=== PATIENT | female | born 1940 | race Native Hawaiian/Other Pacific Islander ===

== ENCOUNTER 2016-04-01 08:47 | Outpatient (CLI) | payer OTHER, BC ==
[~2016-04-01 08:47] MED LIST: ALLO300T23 PO; ALPR0.2566 PO; AMOX500C85 PO; ASA LOW STR81 MG PO; BRILINTA90 MG PO; CARV25TA PO; CRESTOR5 MG PO; CYAN10009 IM; GABA300C2 PO; GLIP10TA55 PO; GRALISE600 MG OR; LISI5TAB10 PO; LOSA50TA PO; METFORMIN ER1000 MG PO; NIASPAN1000 ER PO; RAMI10CA PO; SPIRONOLACT25 MG PO; TESSALON200 MG OR; TIROSINT50 MCG OR
[2016-04-01 09:05] LABS: PLATELET COUNT 193 K/uL (152-353)
[2016-04-01 10:27] LABS: POTASSIUM 4.5 mmol/L (3.6-5.2); SODIUM 136 mmol/L (136-145)
== END 2016-04-01 21:42 | disposition home or self-care (01) ==
LOC: LABW 08:47
PROVIDERS: Internal Medicine Cardiovascular Disease
DX: Z79.899 Other long term (current) drug therapy (principal); Z51.81 Encounter for therapeutic drug level monitoring
CPT/HCPCS: 36415; 80053; 80061; 82248; 85027

== ENCOUNTER 2016-09-29 07:09 | Outpatient (CLI) | payer OTHER, BC ==
[2016-09-29 07:34] LABS: PLATELET COUNT 190 K/uL (152-353)
[2016-09-29 08:18] LABS: POTASSIUM 4.6 mmol/L (3.6-5.2); SODIUM 139 mmol/L (136-145)
== END 2016-09-29 08:10 | disposition home or self-care (01) ==
LOC: LABW 07:09
PROVIDERS: Internal Medicine
DX: I10 Essential (primary) hypertension (principal); E03.8 Other specified hypothyroidism; E11.9 Type 2 diabetes mellitus without complications; E79.0 Hyperuricemia without signs of inflammatory arthritis and tophaceous disease
CPT/HCPCS: 36415; 80053; 80061; 81000; 82043; 82570; 83036; 84439; 84443; 84550; 85027

== ENCOUNTER 2017-03-20 22:18 | Emergency (ER) | payer OTHER, BC ==
[~2017-03-20] VITALS: Ht 160 cm; Wt 75.8 kg
[2017-03-20 22:48] LABS: PLATELET COUNT 180 K/uL (152-353)
[2017-03-20 23:00] LABS: POTASSIUM 4.5 mmol/L (3.6-5.2)
[2017-03-20 23:08] LABS: PARTIAL THROMBOPLASTIN TIME 22.4 SECONDS (24.5-33.6)
[2017-03-20 23:59] VITALS: BP 143/75; TEMP 98.3
== END 2017-03-21 | disposition home or self-care (01) ==
LOC: ED 22:18
DX: M94.0 Chondrocostal junction syndrome [Tietze] (principal); I45.19 Other right bundle-branch block
CPT/HCPCS: 36415; 80053; 82550; 84484; 85027; 85610; 85730; 93005; 99283

== ENCOUNTER 2017-08-02 08:26 | Outpatient (CLI) | payer OTHER, BC ==
[2017-08-02 09:04] LABS: PLATELET COUNT 176 K/uL (152-353)
[2017-08-02 09:24] LABS: POTASSIUM 4.1 mmol/L (3.6-5.2)
== END 2017-08-02 21:50 | disposition home or self-care (01) ==
LOC: LABW 08:26
PROVIDERS: Internal Medicine
DX: E79.0 Hyperuricemia without signs of inflammatory arthritis and tophaceous disease (principal); E11.9 Type 2 diabetes mellitus without complications; D51.0 Vitamin B12 deficiency anemia due to intrinsic factor deficiency; R82.99 Other abnormal findings in urine
CPT/HCPCS: 36415; 80053; 80061; 81000; 82043; 82570; 82607; 83036; 84443; 84550; 85027; 87088

== ENCOUNTER 2017-09-11 12:07 | Emergency (ER) | payer OTHER, BC ==
[~2017-09-11] VITALS: Ht 175.3 cm; Wt 72.1 kg
[2017-09-11 12:10] VITALS: TEMP 97.9
[2017-09-11 12:55] VITALS: BP 138/74
== END 2017-09-11 12:55 | disposition home or self-care (01) ==
LOC: ED 12:07
DX: M25.562 Pain in left knee (principal)
CPT/HCPCS: 99281

== ENCOUNTER 2017-09-18 12:39 | Outpatient (CLI) | payer OTHER, BC | END 2017-09-18 19:50 | disposition home or self-care (01) | LOC: RAD 12:39 | DX: M25.562 Pain in left knee (principal) ==

== ENCOUNTER 2017-11-10 09:31 | Outpatient (CLI) | payer OTHER, BC | END 2017-11-10 22:45 | disposition home or self-care (01) | LOC: LABW 09:31 | DX: E03.9 Hypothyroidism, unspecified (principal) | CPT/HCPCS: 36415; 84439; 84443 ==

== ENCOUNTER 2018-05-16 07:13 | Outpatient (CLI) | payer OTHER, BC ==
[2018-05-16 08:08] LABS: PLATELET COUNT 196 K/uL (152-353)
[2018-05-16 08:26] LABS: POTASSIUM 4.6 mmol/L (3.6-5.2)
== END 2018-05-16 19:40 | disposition home or self-care (01) ==
LOC: LABW 07:13
PROVIDERS: Internal Medicine
DX: E11.9 Type 2 diabetes mellitus without complications (principal)
CPT/HCPCS: 36415; 80053; 80061; 81000; 82043; 82570; 83036; 84439; 84443; 84550; 85027

== ENCOUNTER 2018-10-16 13:30 | Outpatient (CLI) | payer OTHER, BC | END 2018-10-16 23:46 | disposition home or self-care (01) | LOC: RAD 13:30 | DX: M25.511 Pain in right shoulder (principal) ==

== ENCOUNTER 2018-11-07 19:56 | Emergency (ER) | payer OTHER, BC ==
[~2018-11-07] VITALS: Ht 157.5 cm; Wt 69.4 kg
[2018-11-07] MEDS ORDERED: CLOPIDOGREL75 MG PO (20:34)
[2018-11-07 21:12] VITALS: BP 148/61
== END 2018-11-07 21:13 | disposition home or self-care (01) ==
LOC: ED 19:56
DX: S09.8XXA Other specified injuries of head, initial encounter (principal); W01.198A Fall on same level from slipping, tripping and stumbling with subsequent striking against other object, initial encounter; Y92.89 Other specified places as the place of occurrence of the external cause
CPT/HCPCS: 99283

== ENCOUNTER 2018-11-14 07:52 | Outpatient (CLI) | payer OTHER, BC ==
[~2018-11-14 07:52] MED LIST changes: +CLOPIDOGREL75 MG PO
[2018-11-14 08:27] LABS: PLATELET COUNT 207 K/uL (152-353)
[2018-11-14 08:50] LABS: POTASSIUM 4.8 mmol/L (3.6-5.2)
== END 2018-11-14 19:53 | disposition home or self-care (01) ==
LOC: LABW 07:52
PROVIDERS: Internal Medicine
DX: E11.9 Type 2 diabetes mellitus without complications (principal)
CPT/HCPCS: 36415; 80053; 80061; 81000; 83036; 84439; 84443; 85027

== ENCOUNTER 2019-05-20 07:41 | Outpatient (CLI) | payer OTHER, BC ==
[2019-05-20 08:16] LABS: PLATELET COUNT 181 K/uL (152-353)
[2019-05-20 08:49] LABS: POTASSIUM 4.8 mmol/L (3.6-5.2)
== END 2019-05-20 19:08 | disposition home or self-care (01) ==
LOC: LABW 07:41
PROVIDERS: Internal Medicine
DX: E11.9 Type 2 diabetes mellitus without complications (principal)
CPT/HCPCS: 36415; 80053; 80061; 81000; 82043; 82570; 83036; 84439; 84443; 85027

== ENCOUNTER 2020-03-20 13:03 | Observation (INO) | payer OTHER, BC ==
[~2020-03-20] VITALS: Ht 157.5 cm; Wt 66.5 kg
[2020-03-20 13:14] VITALS: BP 131/64; TEMP 98.2
[2020-03-20 14:03] LABS: PLATELET COUNT 153 K/uL (152-353)
[2020-03-20 14:10] LABS: POTASSIUM 3.5 mmol/L (3.6-5.2)
[2020-03-21] VITALS (8 sets, daily range): BP systolic 118–157; BP diastolic 54–86; TEMP 97.6–98.2; Ht 157.5 cm; Wt 66.5 kg
[2020-03-21 06:26] LABS: PLATELET COUNT 138 K/uL (152-353)
[2020-03-21 06:35] LABS: POTASSIUM 3.4 mmol/L (3.6-5.2)
[2020-03-22 04:00] VITALS: BP 137/66; TEMP 97
[2020-03-22 06:23] LABS: PLATELET COUNT 157 K/uL (152-353)
[2020-03-22 06:26] LABS: POTASSIUM 3.5 mmol/L (3.6-5.2)
[2020-03-22 08:00] VITALS: BP 114/60; TEMP 98.2
== END 2020-03-22 11:25 | disposition home or self-care (01) ==
LOC: ED 13:03 → MED/SURG 16:55
PROVIDERS: ADMIT Family Medicine; ATTEND Internal Medicine Endocrinology, Diabetes & Metabolism
DX: U07.1 COVID-19 (principal); A08.39 Other viral enteritis; N17.9 Acute kidney failure, unspecified; E11.9 Type 2 diabetes mellitus without complications; E87.6 Hypokalemia; I25.10 Atherosclerotic heart disease of native coronary artery without angina pectoris; I10 Essential (primary) hypertension; E86.0 Dehydration
CPT/HCPCS: 36415; 80048; 80053; 81000; 82728; 82947; 82948; 85027; 85379; 87502; 87635; 87651; 96360; 96361; 96365; 96367; 96372; 96374; 96375; 99220; 99284; G0378; J0456; J0696; J1100; J1650; J1815; U0003

== ENCOUNTER 2020-03-24 10:22 | Inpatient (IN) | payer OTHER, BC ==
[2020-03-24] VITALS (17 sets, daily range): BP systolic 118–161; BP diastolic 57–91; TEMP 97.6–98; Ht 157.5 cm; Wt 63.8 kg
[~2020-03-24] VITALS: Ht 157.5 cm; Wt 63.8 kg
[2020-03-24 10:54] LABS: PLATELET COUNT 209 K/uL (152-353)
[2020-03-24 11:04] LABS: POTASSIUM 2.9 mmol/L (3.6-5.2)
[2020-03-25] VITALS: BP 147/64; TEMP 97.7
[2020-03-25] MEDS ORDERED: CARV6.25 PO (00:17)
[2020-03-25] MEDS ORDERED: ALLO300T23 PO (00:18)
[2020-03-25] MEDS ORDERED: GABA300C2 PO (00:19)
[2020-03-25] MEDS ORDERED: METFORMIN ER1000 MG PO (00:20)
[2020-03-25] MEDS ORDERED: LIPITOR20 MG PO (00:22)
[2020-03-25] MEDS ORDERED: COZAAR25 MG PO (00:23)
[2020-03-25 04:00] VITALS: BP 144/73; TEMP 97.5
[2020-03-25 05:35] LABS: PLATELET COUNT 152 K/uL (152-353)
[2020-03-25 05:52] LABS: POTASSIUM 3.6 mmol/L (3.6-5.2)
[2020-03-25 08:00] VITALS: BP 151/73; TEMP 98.3
[2020-03-25 12:00] VITALS: BP 150/76; TEMP 98.4
[2020-03-25 16:00] VITALS: BP 141/65; TEMP 97.6
[2020-03-25 20:00] VITALS: BP 147/68; TEMP 98
[2020-03-26] VITALS: BP 137/67; TEMP 97.9
[2020-03-26 01:04] LABS: PLATELET COUNT 190 K/uL (152-353)
[2020-03-26 01:16] LABS: POTASSIUM 3.2 mmol/L (3.6-5.2)
[2020-03-26 04:01] VITALS: BP 141/72; TEMP 98.2
[2020-03-26 08:00] VITALS: BP 137/66; TEMP 97.9
[2020-03-26 12:00] VITALS: BP 110/63; TEMP 97.5
[2020-03-26 16:00] VITALS: BP 131/62; TEMP 97.3
[2020-03-26 19:53] VITALS: BP 121/53; TEMP 98.5
[2020-03-27] VITALS: BP 130/60; TEMP 98.4
[2020-03-27 03:43] VITALS: BP 130/45; TEMP 98.2
[2020-03-27 06:39] LABS: PLATELET COUNT 198 K/uL (152-353)
[2020-03-27 07:24] LABS: POTASSIUM 3.5 mmol/L (3.6-5.2)
[2020-03-27 08:00] VITALS: BP 133/49; TEMP 97.6
[2020-03-27 12:00] VITALS: BP 128/69; TEMP 97.9
[2020-03-27 16:00] VITALS: BP 114/49; TEMP 97.4
[2020-03-27 20:00] VITALS: BP 145/56; TEMP 97.5
[2020-03-28] VITALS: BP 146/69; TEMP 97.5
[2020-03-28 04:00] VITALS: BP 143/68; TEMP 98
[2020-03-28 05:57] LABS: PLATELET COUNT 202 K/uL (152-353)
[2020-03-28 06:29] LABS: POTASSIUM 3.4 mmol/L (3.6-5.2)
[2020-03-28 08:00] VITALS: BP 137/62; TEMP 98.2
[2020-03-28 16:00] VITALS: BP 126/70
[2020-03-28 20:00] VITALS: BP 134/71; TEMP 97.5
[2020-03-28 23:56] VITALS: BP 136/65; TEMP 98.2
[2020-03-29 04:00] VITALS: BP 135/60; TEMP 98.1
[2020-03-29 06:01] LABS: PLATELET COUNT 183 K/uL (152-353)
[2020-03-29 06:17] LABS: POTASSIUM 2.9 mmol/L (3.6-5.2)
[2020-03-29 08:00] VITALS: BP 129/70; TEMP 98
[2020-03-29 12:00] VITALS: BP 143/68; TEMP 97.8
[2020-03-29 16:00] VITALS: BP 137/67; TEMP 98.3
[2020-03-29 20:00] VITALS: BP 141/60; TEMP 97.7
[2020-03-30] VITALS (7 sets, daily range): BP systolic 119–166; BP diastolic 51–73; TEMP 97.5–98.4
[2020-03-30 07:35] LABS: PLATELET COUNT 141 K/uL (152-353)
[2020-03-31 04:00] VITALS: BP 96/53; TEMP 97.7
[2020-03-31 06:26] LABS: PLATELET COUNT 169 K/uL (152-353)
[2020-03-31 06:58] LABS: POTASSIUM 3.8 mmol/L (3.6-5.2)
[2020-03-31 08:00] VITALS: BP 125/73; TEMP 98
[2020-03-31 11:47] VITALS: BP 102/50; TEMP 98.2
[2020-03-31 16:00] VITALS: BP 101/46; TEMP 97.9
[2020-03-31 20:00] VITALS: BP 115/46; TEMP 98.3
[2020-04-01] VITALS: BP 123/58; TEMP 98.2
[2020-04-01 03:44] VITALS: BP 100/55; TEMP 98.1
[2020-04-01 06:15] LABS: PLATELET COUNT 178 K/uL (152-353)
[2020-04-01 07:14] LABS: POTASSIUM 3.6 mmol/L (3.6-5.2)
[2020-04-01 08:00] VITALS: BP 100/46; TEMP 98.2
== END 2020-04-01 14:05 | disposition home or self-care (01) | DRG 177 ==
LOC: ED 10:25 → MED/SURG 16:55
PROVIDERS: Family Medicine; Internal Medicine Endocrinology, Diabetes & Metabolism; ADMIT Internal Medicine; ATTEND Internal Medicine
DX: U07.1 COVID-19 (principal); J96.01 Acute respiratory failure with hypoxia; J18.8 Other pneumonia, unspecified organism; A08.39 Other viral enteritis; N17.9 Acute kidney failure, unspecified; E03.8 Other specified hypothyroidism; E11.40 Type 2 diabetes mellitus with diabetic neuropathy, unspecified; R62.7 Adult failure to thrive; I10 Essential (primary) hypertension; I25.10 Atherosclerotic heart disease of native coronary artery without angina pectoris; E78.49 Other hyperlipidemia; E87.6 Hypokalemia; E86.0 Dehydration
CPT/HCPCS: 36415; 36600; 80048; 80053; 81000; 82728; 82805; 82947; 82948; 82962; 83605; 85027; 85379; 87040; 87502; 87635; 87651; 94667; 94668; 94760; 96360; 96361; 96365; 96367; 96372; 96374; 96375; 99220; 99284; G0378; J0456; J0696; J1100; J1650; J1815; J2930; J7060; U0003

== ENCOUNTER 2020-04-22 11:27 | Outpatient (CLI) | payer OTHER, BC ==
[~2020-04-22 11:27] MED LIST changes: +CARV6.25 PO; +COZAAR25 MG PO; +LIPITOR20 MG PO
== END 2020-04-22 21:54 | disposition home or self-care (01) ==
LOC: RAD 11:27
PROVIDERS: ATTEND Internal Medicine
DX: J18.9 Pneumonia, unspecified organism (principal)

== ENCOUNTER 2020-08-25 07:33 | Outpatient (CLI) | payer OTHER, BC ==
[2020-08-25 08:15] LABS: PLATELET COUNT 197 K/uL (152-353)
[2020-08-25 08:35] LABS: POTASSIUM 4.6 mmol/L (3.6-5.2)
== END 2020-08-25 22:39 | disposition home or self-care (01) ==
LOC: LABW 07:33
PROVIDERS: ATTEND Internal Medicine
DX: E11.9 Type 2 diabetes mellitus without complications (principal); D51.0 Vitamin B12 deficiency anemia due to intrinsic factor deficiency
CPT/HCPCS: 36415; 80053; 80061; 81000; 82043; 82570; 82607; 83036; 84439; 84443; 85027

== ENCOUNTER 2021-01-27 10:53 | Outpatient (CLI) | payer OTHER, BC | END 2021-01-27 20:42 | disposition home or self-care (01) | LOC: RAD 10:53 | PROVIDERS: ATTEND Internal Medicine | DX: J40 Bronchitis, not specified as acute or chronic (principal) ==

== ENCOUNTER 2021-03-31 15:57 | Outpatient (CLI) | payer OTHER, BC ==
[2021-03-31 16:17] LABS: PLATELET COUNT 239 K/uL (152-353)
[2021-03-31 16:48] LABS: POTASSIUM 4.2 mmol/L (3.6-5.2)
== END 2021-03-31 19:19 | disposition home or self-care (01) ==
LOC: LAB 15:57
PROVIDERS: ATTEND Internal Medicine
DX: E11.9 Type 2 diabetes mellitus without complications (principal); E79.0 Hyperuricemia without signs of inflammatory arthritis and tophaceous disease
CPT/HCPCS: 80053; 80061; 81000; 83036; 84439; 84443; 84550; 85027

== ENCOUNTER 2021-09-29 12:51 | Outpatient (CLI) | payer OTHER, BC ==
[2021-09-29 13:03] LABS: PLATELET COUNT 167 K/uL (152-353)
[2021-09-29 13:26] LABS: POTASSIUM 4.5 mmol/L (3.6-5.2)
== END 2021-09-29 18:56 | disposition home or self-care (01) ==
LOC: LAB 12:51
PROVIDERS: ATTEND Internal Medicine
DX: E03.8 Other specified hypothyroidism (principal); D51.0 Vitamin B12 deficiency anemia due to intrinsic factor deficiency; I25.10 Atherosclerotic heart disease of native coronary artery without angina pectoris; E11.9 Type 2 diabetes mellitus without complications; I10 Essential (primary) hypertension
CPT/HCPCS: 80053; 80061; 81002; 82043; 83036; 84439; 84443; 85027

== ENCOUNTER 2022-05-11 12:40 | Outpatient (CLI) | payer OTHER, BC ==
[2022-05-11 12:53] LABS: PLATELET COUNT 176 K/uL (152-353)
[2022-05-11 13:23] LABS: POTASSIUM 3.5 mmol/L (3.6-5.2)
== END 2022-05-11 19:31 | disposition home or self-care (01) ==
LOC: LAB 12:40
PROVIDERS: ATTEND Internal Medicine
DX: E03.8 Other specified hypothyroidism (principal); I10 Essential (primary) hypertension; E79.0 Hyperuricemia without signs of inflammatory arthritis and tophaceous disease; E11.9 Type 2 diabetes mellitus without complications; D51.0 Vitamin B12 deficiency anemia due to intrinsic factor deficiency
CPT/HCPCS: 80053; 81002; 82607; 83036; 84439; 84443; 84550; 85027

== ENCOUNTER 2022-07-07 10:00 | Outpatient (CLI) | payer OTHER, BC ==
[~2022-07-07 10:00] MED LIST changes: +GABA300C2; -GLIP10TA55 PO; +GLIPIZIDE ER PO
== END 2022-07-07 17:00 | disposition home or self-care (01) ==
LOC: RAD 10:00
PROVIDERS: ATTEND Internal Medicine
DX: J40 Bronchitis, not specified as acute or chronic (principal)

== ENCOUNTER 2022-07-11 10:08 | Observation (INO) | payer OTHER, BC ==
[~2022-07-11] VITALS: Ht 157.5 cm; Wt 64.9 kg
[2022-07-11 11:12] LABS: PLATELET COUNT 220 K/uL (152-353)
[2022-07-11 11:13] LABS: POTASSIUM 4.1 mmol/L (3.6-5.2)
[2022-07-11 11:38] VITALS: BP 103/54; TEMP 97.5; Ht 157.5 cm; Wt 64.9 kg
[2022-07-11 12:00] VITALS: BP 103/54; TEMP 97.5
[2022-07-11] MEDS ORDERED: CYAN10009 IM (15:46)
[2022-07-11] MEDS ORDERED: FLONASE AL50 MCG/ACT NAS (15:47)
[2022-07-11] MEDS ORDERED: NITROSTAT0.4 MG SL (15:47)
[2022-07-11] MEDS ORDERED: LEVOFLOXACIN500 MG PO (15:48)
[2022-07-11] MEDS ORDERED: MEDROL DOSEPAK4 MG (15:49)
[2022-07-11] MEDS ORDERED: PRESERVISION AREDS PO (15:49)
[2022-07-11 16:02] VITALS: BP 103/55; TEMP 97.9
[2022-07-11 19:30] VITALS: BP 101/57; TEMP 98.2
[2022-07-11 23:30] VITALS: BP 117/58; TEMP 97.7
[2022-07-12 03:32] VITALS: BP 110/50; TEMP 98.1
[2022-07-12 07:07] LABS: PLATELET COUNT 178 K/uL (152-353)
[2022-07-12 07:24] LABS: POTASSIUM 3.5 mmol/L (3.6-5.2)
[2022-07-12 07:55] VITALS: BP 136/61; TEMP 98.1
[2022-07-12 11:56] VITALS: BP 124/61; TEMP 98.2
[2022-07-12 15:58] VITALS: BP 129/65; TEMP 97.9
[2022-07-12 19:47] VITALS: BP 151/67; TEMP 97.5
[2022-07-12 23:31] VITALS: BP 142/67; TEMP 98.2
[2022-07-13 04:00] VITALS: BP 117/61; TEMP 97.8
[2022-07-13 08:00] VITALS: BP 128/56; TEMP 97.7
[2022-07-13] MEDS ORDERED: ALLO100T22 PO (09:43)
[2022-07-13] MEDS ORDERED: LIPITOR10 MG PO (09:44)
[2022-07-13] MEDS ORDERED: CARV25TA PO (09:45)
== END 2022-07-13 10:20 | disposition home or self-care (01) ==
LOC: MED/SURG 10:08
PROVIDERS: ADMIT Internal Medicine; ATTEND Internal Medicine
DX: K52.89 Other specified noninfective gastroenteritis and colitis (principal); E11.65 Type 2 diabetes mellitus with hyperglycemia; J06.9 Acute upper respiratory infection, unspecified; I10 Essential (primary) hypertension; R11.2 Nausea with vomiting, unspecified; R19.7 Diarrhea, unspecified; I25.10 Atherosclerotic heart disease of native coronary artery without angina pectoris; Z95.818 Presence of other cardiac implants and grafts; D72.828 Other elevated white blood cell count; E86.0 Dehydration; Z87.891 Personal history of nicotine dependence; Z79.84 Long term (current) use of oral hypoglycemic drugs
CPT/HCPCS: 80048; 80053; 81002; 82948; 83605; 84439; 84443; 85027; 87015; 87045; 87899; 96361; 96365; 96372; 96375; 99220; 99221; G0378; G0379; J1650; J1956; J2405

== ENCOUNTER 2022-10-31 12:51 | Outpatient (CLI) | payer OTHER, BC ==
[~2022-10-31 12:51] MED LIST changes: +ALLO100T22 PO; +FLONASE AL50 MCG/ACT NAS; +LEVOFLOXACIN500 MG PO; +LIPITOR10 MG PO; +MEDROL DOSEPAK4 MG; +NITROSTAT0.4 MG SL; +PRESERVISION AREDS PO
[2022-10-31 13:09] LABS: PLATELET COUNT 171 K/uL (152-353)
== END 2022-10-31 21:31 | disposition home or self-care (01) ==
LOC: LAB 12:51
PROVIDERS: ATTEND Internal Medicine
DX: E11.9 Type 2 diabetes mellitus without complications (principal); E03.8 Other specified hypothyroidism; D51.0 Vitamin B12 deficiency anemia due to intrinsic factor deficiency; I10 Essential (primary) hypertension; I25.10 Atherosclerotic heart disease of native coronary artery without angina pectoris
CPT/HCPCS: 80053; 80061; 82607; 83036; 84439; 84443; 85027; 85610